=== PATIENT | female | born 1970 | race Caucasian/White ===

== ENCOUNTER 2017-01-12 21:12 | Emergency (ER) | payer MEDICAID ==
[2017-01-12 22:29] LABS: BASOPHIL % 0.5 % (0-2); PLATELET COUNT 385 x10^3mcL (130-400)
[2017-01-12 22:31] LABS: CARBON DIOXIDE 29.8 mmol/L (21-32); CHLORIDE SERUM 101 mmol/L (98-107); CREATININE SERUM 0.8 mg/dL (0.6-1.0); GFR1 > 60 mL/min; GLUCOSE SERUM 248 mg/dL (74-106); POTASSIUM SERUM 4.7 mmol/L (3.5-5.1); SODIUM SERUM 138 mmol/L (136-145)
[2017-01-13 01:26] VITALS: BP 135/81
== END 2017-01-13 01:26 | disposition home or self-care (01) ==
LOC: ED 21:12
PROVIDERS: Emergency Medicine
DX: R07.89 Other chest pain (principal); I10 Essential (primary) hypertension; E11.9 Type 2 diabetes mellitus without complications; Z79.84 Long term (current) use of oral hypoglycemic drugs
CPT/HCPCS: 36415; J1885; Q0092

== ENCOUNTER 2017-06-22 10:06 | Emergency (ER) | payer MEDICAID ==
[~2017-06-22] VITALS: Ht 160 cm; Wt 75.7 kg
[2017-06-22 11:23] LABS: CALCIUM 9.2 mg/dL (8.5-10.1); CARBON DIOXIDE 25.2 mmol/L (21-32); CHLORIDE SERUM 99 mmol/L (98-107); CREATININE SERUM 0.8 mg/dL (0.6-1.0); GFR1 > 60 mL/min; GLUCOSE SERUM 236 mg/dL (74-106); POTASSIUM SERUM 4.5 mmol/L (3.5-5.1); SODIUM SERUM 134 mmol/L (136-145)
[2017-06-22 11:27] LABS: ALBUMIN 3.5 g/dL (3.4-5.0); ALKALINE PHOSPHATASE 66 U/L (46-116); ALT/SGPT 28 U/L (14-59); AMYLASE 57 U/L (25-115); AST/SGOT 14 U/L (15-37); BASOPHIL % 0.5 % (0-2); BILIRUBIN TOTAL 0.35 mg/dL (0.20-1.00); LIPASE 232 IU/L (73-393); PLATELET COUNT 354 x10^3mcL (130-400); RED CELL DISTRIBUTION WIDTH 12.9 % (11.5-14.5); TOTAL PROTEIN, SERUM 7.2 g/dL (6.4-8.2); URIC ACID 3.6 mg/dL (2.6-6.0)
[2017-06-22 13:23] VITALS: BP 153/76
== END 2017-06-22 13:23 | disposition home or self-care (01) ==
LOC: ED 10:06
PROVIDERS: Emergency Medicine
DX: K29.00 Acute gastritis without bleeding (principal); I10 Essential (primary) hypertension; E11.65 Type 2 diabetes mellitus with hyperglycemia; M25.562 Pain in left knee
CPT/HCPCS: 83880; J3010; J3490; J7030; Q0162

== ENCOUNTER 2019-06-12 16:21 | Emergency (ER) | payer MEDICAID ==
[~2019-06-12] VITALS: Ht 154.9 cm; Wt 83.5 kg
[2019-06-12 16:33] VITALS: Ht 154.9 cm; Wt 83.5 kg
[2019-06-12 20:42] VITALS: BP 158/80
== END 2019-06-12 20:42 | disposition home or self-care (01) ==
LOC: ED 16:21
DX: J02.9 Acute pharyngitis, unspecified (principal); J40 Bronchitis, not specified as acute or chronic
CPT/HCPCS: 87804; J1885